=== PATIENT | male | born 1990 | race Hispanic/Latino ===

== ENCOUNTER 2017-01-28 22:58 | Emergency (ER) | payer SELFPAY ==
[~2017-01-28] VITALS: Ht 175.3 cm; Wt 79.4 kg
[~2017-01-28 22:58] MED LIST: NOHOMEMEDS
[2017-01-29] MEDS ORDERED: MOTRIN600 MG PO (00:15)
[2017-01-29 00:20] VITALS: BP 120/62
== END 2017-01-29 00:21 | disposition home or self-care (01) ==
LOC: EME 22:58 → EXP 22:58
DX: S60.221A Contusion of right hand, initial encounter (principal); W22.8XXA Striking against or struck by other objects, initial encounter; F17.200 Nicotine dependence, unspecified, uncomplicated
CPT/HCPCS: 73130; 99281; 99283